=== PATIENT | male | born 1970 | race Hispanic/Latino ===

== ENCOUNTER 2017-12-31 11:15 | Emergency (ER) | payer BC ==
[~2017-12-31] VITALS: Ht 177.8 cm; Wt 94.3 kg
[2017-12-31 16:00] VITALS: BP 117/69
== END 2017-12-31 16:00 | disposition home or self-care (01) ==
LOC: EME 11:15
DX: S61.210A Laceration without foreign body of right index finger without damage to nail, initial encounter (principal); W25.XXXA Contact with sharp glass, initial encounter; Y93.G1 Activity, food preparation and clean up; Z23 Encounter for immunization; Z88.0 Allergy status to penicillin
CPT/HCPCS: 99281; 99284